=== PATIENT | male | born 1945 | race Caucasian/White ===

== ENCOUNTER 2020-10-14 17:03 | Emergency (ER) | payer MEDICARE, OTHER ==
[~2020-10-14] VITALS: Ht 182.9 cm; Wt 109.1 kg
[2020-10-14] MEDS ORDERED: ACETAMINOPHEN 500 MG TABLET PO ONE (17:30)
[2020-10-14 17:43] LABS: APPEARANCE,URINE CLOUDY (CLEAR); BILIRUBIN,URINE NEGATIVE (NEGATIVE); GLUCOSE, URINE (UA) NEGATIVE (NEGATIVE); KETONES,URINE TRACE mg/dL (NEGATIVE); LEUKOCYTE ESTERASE ,URINE LARGE (NEGATIVE); NITRATE,URINE NEGATIVE (NEGATIVE); OCCULT BLOOD,URINE MODERATE (NEGATIVE); PROTEIN,URINE NEGATIVE (NEGATIVE); UROBILINOGEN,URINE 0.2 mg/dL (<=1.0)
[2020-10-14] MEDS ORDERED: SODIUM CHLORIDE 0.9% 1,000 ML IV ONE (17:45)
[2020-10-14] MEDS ORDERED: CefTRIAXone 1 GM/DEXTROSE 50 ML IV ONE (17:45)
[2020-10-14 17:59] LABS: WBC,URINE >100 /HPF (0-5)
[2020-10-14 18:00] LABS: BACTERIA,URINE Few /HPF (None Seen)
[2020-10-14 18:01] LABS: SQUAMOUS EPITHELIAL CELL,UR Rare /LPF (None Seen)
[2020-10-14 18:30] LABS: BASOPHILS % (AUTO) 0.4 % (0.0-2.0); EOSINOPHILS % (AUTO) 0.5 % (1.0-6.0); HEMATOCRIT 37.8 % (41-53); HEMOGLOBIN 12.6 g/dL (13.5-17.5); LYMPHOCYTES # (AUTO) 0.7 K/uL (1.0-4.8); LYMPHOCYTES % (AUTO) 4.1 % (22.0-44.0); MEAN CORPUSCULAR HEMOGLOBIN 29.9 pg (26.0-34.0); MEAN CORPUSCULAR HGB CONC 33.3 G/dL (31.0-37.0); MEAN CORPUSCULAR VOLUME 90 fL (80-100); MONOCYTES # (AUTO) 0.9 K/uL (0.1-1.0); MONOCYTES % (AUTO) 5.6 % (2.0-9.0); NEUTROPHILS # (AUTO) 14.5 K/uL (1.8-7.7); PLATELET COUNT (AUTO) 196 K/uL (150-450); RED BLOOD CELL COUNT(AUTO) 4.21 MIL/uL (4.50-5.90); RED CELL DISTRIBUTION WIDTH 13.7 % (11.5-14.5)
[2020-10-14] MEDS ORDERED: FAMO20 PO (18:47)
[2020-10-14] MEDS ORDERED: MELA5TAB40 PO (18:47)
[2020-10-14] MEDS ORDERED: TRAZ-257 PO (18:47)
[2020-10-14] MEDS ORDERED: ATOR40TA28 PO (18:47)
[2020-10-14] MEDS ORDERED: METH-417 PO (18:47)
[2020-10-14] MEDS ORDERED: AMLO-257 PO (18:47)
[2020-10-14] MEDS ORDERED: CLOP75TA60 PO (18:47)
[2020-10-14] MEDS ORDERED: SERT-162 PO (18:47)
[2020-10-14] MEDS ORDERED: ASPI81TA39 PO (18:47)
[2020-10-14 19:10] LABS: CALCIUM, TOTAL 9.1 mg/dL (8.8-10.5); CREATININE 1.66 mg/dL (0.60-1.30); NEUTROPHILS % (AUTO) 89.4 % (40.0-70.0); POTASSIUM 4.8 mmol/L (3.5-5.1)
[2020-10-14 19:16] LABS: ALBUMIN 3.9 g/dL (3.4-5.0); BILIRUBIN,TOTAL 0.3 mg/dL (0.1-1.0); TOTAL PROTEIN, SERUM 7.2 g/dL (6.4-8.2)
[2020-10-14 19:39] LABS: LACTIC ACID 1.3 mmol/L (0.4-2.0)
[2020-10-14 19:58] VITALS: BP 129/55
== END 2020-10-14 20:28 | disposition home or self-care (01) ==
LOC: EMS 17:13
DX: N39.0 Urinary tract infection, site not specified (principal); I10 Essential (primary) hypertension; F32.9 Major depressive disorder, single episode, unspecified; E78.00 Pure hypercholesterolemia, unspecified; I51.9 Heart disease, unspecified; Z88.5 Allergy status to narcotic agent
CPT/HCPCS: 36415; 80053; 81001; 83605; 85025; 87077; 87086; 87186; 96365; 99284; J0696; J7030